=== PATIENT | female | born 1990 | race Caucasian/White ===

== ENCOUNTER 2016-06-22 15:05 | Emergency (ER) | payer SELFPAY ==
[2016-06-22] MEDS ORDERED: OXYCODONE-ACETAMINOPHEN 5-325 MG TABLET PO ONE (15:52)
[2016-06-22] MEDS ORDERED: SULFAMETHOXAZOLE/TRIMETHOPRIM 800-160 MG TABLET PO ONE (15:52)
--- NOTE | 2016-06-22 15:58 | ER Document Report ---
ED Medical Screen (RME) - General Chief Complaint: Abscess Stated Complaint: ARM PAIN Time seen by provider: 15:53 Mode of Arrival: Ambulatory Information source: Patient Notes: This is a 26-year-old female with no prior medical problems who presents to the emergency room with tenderness in her left axilla. The patient is a smoker and states she's had a productive cough with sinus congestion recently. She denies fever. She has had abscesses in the past but states that this feels different. She states that this feels hard. TRAVEL OUTSIDE OF THE [place] IN LAST 30 DAYS: No - HPI Onset: Last week Onset/Duration: Gradual Quality of pain: Dull Severity: Moderate Pain Level: 3 Associated Symptoms: Chills, Cough (productive), Sinus pain/drainage. denies: Fever Exacerbated by: Denies Relieved by: Denies Similar symptoms previously: No Recently seen / treated by doctor: No - Related Data Smoking: Cigarettes Frequency of alcohol use: None Drug Abuse: None Allergies/Adverse Reactions: ketorolac [From Toradol] Allergy (Verified 06/22/16 15:18) Past Medical History - General Information source: Patient - Social History Cigarette use (# per day): Yes - 6 cigarettes a day (down from a pack a day) Chew tobacco use (# tins/day): Yes - 6 per day Frequency of alcohol use: None Drug Abuse: None Lives with: Family Family history: Reviewed & Not Pertinent - Medical History Medical History: Negative Pulmonary Medical History: Reports: Hx Bronchitis Renal/ Medical History: Denies: Hx Peritoneal Dialysis Musculoskeltal Medical History: Denies Hx Arthritis, Denies Hx Fibromyalgia, Reports Hx Musculoskeletal Trauma Psychiatric Medical History: Denies: Hx Anxiety Traumatic Medical History: Denies: Hx Fractures Past Surgical History: Reports: Hx Appendectomy - Immunizations Hx Diphtheria, Pertussis, Tetanus Vaccination: Yes - 2009 Review of Systems - Review of Systems Constitutional: See HPI EENT: No symptoms reported Cardiovascular: No symptoms reported Respiratory: See HPI Gastrointestinal: No symptoms reported Genitourinary: No symptoms reported Female Genitourinary: No symptoms reported Musculoskeletal: See HPI Skin: See HPI Hematologic/Lymphatic: No symptoms reported Neurological/Psychological: No symptoms reported Physical Exam - Vital signs Vitals: Temp Pulse Resp BP Pulse Ox 98.3 F 71 14 126/85 H 98 06/22/16 15:21 06/22/16 15:21 06/22/16 15:21 06/22/16 15:21 06/22/16 15:21 Notes: Physical exam: GENERAL: 26-year-old female, alert and oriented 3, no acute distress HEAD: Atraumatic, normocephalic. EYES: Pupils equal round and reactive to light, extraocular movements intact, sclera anicteric, conjunctiva are normal. ENT: TMs normal, nares patent, oropharynx clear without exudates. Moist mucous membranes. NECK: Normal range of motion, supple LUNGS: Scattered wheezes, good airway excursion HEART: Regular rate and rhythm without murmurs, rubs or gallops. ABDOMEN: Soft, normoactive bowel sounds. No tenderness to palpation. No guarding, no rebound. No masses appreciated. EXTREMITIES: Normal range of motion, no pitting or edema. No clubbing or cyanosis. NEUROLOGICAL: Cranial nerves II through XII grossly intact. Normal speech, normal gait. PSYCH: Normal mood, normal affect. SKIN: Patient has a tender nodular-like lesion in the left axilla which is approximately a half a centimeter. There is no overlying erythema. There is no fluctuance. There is no drainage or warmth around the skin. It does feel more like a tender lymph node given its firmness. Course - Re-evaluation Re-evalutation: 06/22/16 15:56 I've discussed the issue with the patient. This may be a reactive lymph node to a sinus infection or bronchitis in the setting of smoking. In any event, I don't detect any fluctuance or anything that requires an incision and drainage at this time. I did tell her that if there was increasing swelling or redness or fluctuance, we would actually at that point in size of lesion and drain it. At this point, I think it's more the lymph node and we will treat with warm packs and antibiotics. - Vital Signs Vital signs: Temp Pulse Resp BP Pulse Ox 98.9 F 66 16 128/74 H 99 06/22/16 16:12 06/22/16 16:12 06/22/16 16:12 06/22/16 16:12 06/22/16 16:12 Doctor's Discharge - Discharge Clinical Impression: inflamed lymph node, URI Disposition: HOME, SELF-CARE Instructions: Oral Narcotic Medication ([facility]), Trimethoprim-Sulfa ([facility]) Additional Instructions: Recommendations: Try warm soaks to the area several times a day. Take pain medicine as needed. See the narcotic instructions below. Take the antibiotics as prescribed. Return to the emergency room if the skin becomes red or there is swelling or fluctuance over the area or any concerns that it's getting worse: It may need an incision and drainage at that time. Prescriptions: Oxycodone HCl/Acetaminophen [Percocet 5-325 mg Tablet] 1 - 2 tab PO ASDIR PRN # 25 tablet PRN Reason: Sulfamethoxazole/Trimethoprim [Bactrim Ds Tablet] 1 each PO BID #14 tablet
[2016-06-22 16:30] VITALS: BP 128/74
== END 2016-06-22 16:28 | disposition home or self-care (01) ==
LOC: ER 15:05
DX: R59.0 Localized enlarged lymph nodes (principal); J06.9 Acute upper respiratory infection, unspecified; R05 Cough; R09.89 Other specified symptoms and signs involving the circulatory and respiratory systems; R68.83 Chills (without fever); R06.2 Wheezing; F17.210 Nicotine dependence, cigarettes, uncomplicated; Z88.6 Allergy status to analgesic agent
CPT/HCPCS: 99283

== ENCOUNTER 2016-07-01 17:59 | Emergency (ER) | payer SELFPAY ==
[2016-07-01 18:05] VITALS: BP 128/88
--- NOTE | 2016-07-01 19:53 | ER Document Report ---
ED Skin Rash/Insect Bite/Abscs - General Chief Complaint: Abscess Stated Complaint: PAINFUL ARMPIT BUMP Time Seen by Provider: 07/01/16 19:48 Mode of Arrival: Ambulatory Information source: Patient Notes: Patient is a 26-year-old female who presents to the ER today for painful lumps in her left armpit 3 weeks. Patient has been seen here for them when it was just one lump, placed on Bactrim and states that that did get better. She has no history of MRSA that she knows of. She states that it started to become painful and itchy again and now she has several lumps but they 're smaller than the one she had before. She denies any fevers or chills, drainage. TRAVEL OUTSIDE OF THE [place] IN LAST 30 DAYS: No - Related Data Allergies/Adverse Reactions: ketorolac [From Toradol] Allergy (Verified 07/01/16 18:04) Past Medical History - General Information source: Patient - Social History Smoking Status: Unknown if Ever Smoked Family History: Arthritis, CAD, CVA, DM, Hyperlipidemia, Hypertension, Malignancy Patient has suicidal ideation: No Patient has homicidal ideation: No Pulmonary Medical History: Reports: Hx Bronchitis Renal/ Medical History: Denies: Hx Peritoneal Dialysis Musculoskeltal Medical History: Denies Hx Arthritis, Denies Hx Fibromyalgia, Reports Hx Musculoskeletal Trauma Psychiatric Medical History: Denies: Hx Anxiety Traumatic Medical History: Denies: Hx Fractures Past Surgical History: Reports: Hx Appendectomy - Immunizations Hx Diphtheria, Pertussis, Tetanus Vaccination: Yes - 2009 Review of Systems - Review of Systems Constitutional: No symptoms reported EENT: No symptoms reported Cardiovascular: No symptoms reported Respiratory: No symptoms reported Gastrointestinal: No symptoms reported Genitourinary: No symptoms reported Female Genitourinary: No symptoms reported Musculoskeletal: No symptoms reported Skin: See HPI Hematologic/Lymphatic: No symptoms reported Neurological/Psychological: No symptoms reported Physical Exam - Vital signs Vitals: Temp Pulse Resp BP Pulse Ox 99.2 F 65 14 128/88 H 99 07/01/16 18:04 07/01/16 18:04 07/01/16 18:04 07/01/16 18:04 07/01/16 18:04 - Notes Notes: PHYSICAL EXAMINATION: GENERAL: Well-appearing and in no acute distress. HEAD: Atraumatic, normocephalic. EYES: Pupils equal round and reactive to light, extraocular movements intact, sclera anicteric, conjunctiva are normal. NECK: Normal range of motion, supple without lymphadenopathy LUNGS: CTAB and equal. No wheezes rales or rhonchi. HEART: Regular rate and rhythm without murmurs EXTREMITIES: Normal range of motion, no pitting edema. No cyanosis. NEUROLOGICAL: Cranial nerves grossly intact. Normal sensory/motor exams. PSYCH: Normal mood, normal affect. SKIN: Warm, Dry, normal turgor, 3 small indurated, erythematous areas felt in the left axilla, less than 1 cm in size each, felt deep and axilla , excoriation present Course - Vital Signs Vital signs: Temp Pulse Resp BP Pulse Ox 99.2 F 65 14 128/88 H 99 07/01/16 18:04 07/01/16 18:04 07/01/16 18:04 07/01/16 18:04 07/01/16 18:04 Discharge - Discharge Clinical Impression: Abscess of axilla, left Condition: Stable Disposition: HOME, SELF-CARE Instructions: Oral Narcotic Medication ([facility]) Additional Instructions: Return immediately for any new or worsening symptoms. Follow up with surgeon/primary care provider, call tomorrow to make followup appointment. Prescriptions: Doxycycline Hyclate 100 mg PO BID #20 capsule Referrals: GENOVEVA ESPINO MD [ACTIVE STAFF] - Follow up as needed
[2016-07-01] MEDS ORDERED: DOXYCYCLINE HYCLATE 100 MG TABLET PO ONE (20:03)
[2016-07-01] MEDS ORDERED: HYDROCODONE/ACETAMINOPHEN 5-325 MG 6 TAB/DSPK PO PRN (20:03)
[2016-07-01] MEDS ORDERED: HYDROCODONE/ACETAMINOPHEN 5-325 MG TABLET PO ONE (20:03)
[2016-07-01] MEDS ORDERED: OXYCODONE-ACETAMINOPHEN 5-325 MG TABLET PO ONE (20:12)
== END 2016-07-01 20:22 | disposition home or self-care (01) ==
LOC: ER 17:59
DX: L02.414 Cutaneous abscess of left upper limb (principal)
CPT/HCPCS: 99282

== ENCOUNTER 2016-09-15 20:14 | Observation (INO) | payer SELFPAY ==
[2016-09-15] MEDS ORDERED: NORMAL SALINE 1000 ML 1,000 ML IV ONE (20:32)
--- NOTE | 2016-09-15 20:33 | ER Document Report ---
ED Substance Abuse / Acc. OD - General Stated Complaint: UNRESPONSIVE Time Seen by Provider: 09/15/16 20:27 Notes: Patient is a 26-year-old female that comes emergency department by being dropped off by her mother after she was found not responding at home. Patient awakened after arrival to the emergency department, she tells me that she does remember injecting heroin into her right antecubital space. Patient states that she is supposed to be entering detox in 2 days and has the appointment already. Patient states that she was not trying to kill herself or overdose. Patient states that she aches all over and feels cold but denies any other symptoms including difficulty breathing. She missed her last menstrual cycle. She denies any daily medications. She denies any medical history other than history of substance abuse. TRAVEL OUTSIDE OF THE [place] IN LAST 30 DAYS: No - Related Data Allergies/Adverse Reactions: ketorolac [From Toradol] Allergy (Verified 07/01/16 18:04) Past Medical History - General Information source: Patient - Social History Smoking Status: Former Smoker Frequency of alcohol use: Occasional Drug Abuse: Cocaine, Heroin, Marijuana Lives with: Family Family History: Arthritis, CAD, CVA, DM, Hyperlipidemia, Hypertension, Malignancy Pulmonary Medical History: Reports: Hx Bronchitis Renal/ Medical History: Denies: Hx Peritoneal Dialysis Musculoskeltal Medical History: Denies Hx Arthritis, Denies Hx Fibromyalgia, Reports Hx Musculoskeletal Trauma Psychiatric Medical History: Denies: Hx Anxiety Traumatic Medical History: Denies: Hx Fractures Past Surgical History: Reports: Hx Appendectomy - Immunizations Hx Diphtheria, Pertussis, Tetanus Vaccination: Yes - 2009 Review of Systems - Review of Systems Constitutional: No symptoms reported EENT: No symptoms reported Cardiovascular: See HPI Respiratory: No symptoms reported Gastrointestinal: No symptoms reported Genitourinary: No symptoms reported Female Genitourinary: No symptoms reported Musculoskeletal: No symptoms reported Skin: No symptoms reported Hematologic/Lymphatic: No symptoms reported Neurological/Psychological: See HPI Physical Exam - Vital signs Vitals: Resp 10 L 09/15/16 20:25 Interpretation: Normal - General General appearance: Alert, Lethargic - sedated, but arousable and responsive with sternal rub In distress: None - HEENT Head: Normocephalic, Atraumatic Eyes: Normal Pupils: PERRL - Respiratory Respiratory status: No respiratory distress. No: Depressed respirations, Tachypnea Chest status: Nontender Breath sounds: Normal. No: Decreased air movement Chest palpation: Normal - Cardiovascular Rhythm: Regular. No: Tachycardia Heart sounds: Normal auscultation, S1 appreciated, S2 appreciated Murmur: No - Abdominal Inspection: Normal Distension: No distension Bowel sounds: Normal Tenderness: Nontender Organomegaly: No organomegaly - Back Back: Normal, Nontender - Extremities General upper extremity: Normal inspection, Nontender, Normal color, Normal ROM , Normal temperature General lower extremity: Normal inspection, Nontender, Normal color, Normal ROM , Normal temperature, Normal weight bearing. No: Willis's sign - Neurological [place] Coma Scale Eye Opening: To Pain [place] Coma Scale Verbal: Oriented [place] Coma Scale Motor: Obeys Commands [place] Coma Scale Total: 13 Speech: Normal Cranial nerves: Normal Cerebellar coordination: Normal Motor strength normal: LUE, RUE, LLE, RLE Additional motor exam normals: Equal birth attendant Sensory: Normal - Skin Skin Temperature: Warm Skin Moisture: Dry Skin Color: Normal Course - Re-evaluation Re-evalutation: On initial examination patient is maintaining her airway, she is drowsy but responds to sternal rub. With sternal rub she becomes responsive and answers questions. She admits that she injected heroin, believe she took cocaine and other substances. She states that she was having some fun before going into detox in 2 days. Because of no SI or HI patient will not be placed on IVC papers at this time. Lab workup does not show any concerning abnormalities, shows polysubstance abuse. We will continue to monitor. Mother came to bedside, discussed situation with mother, she states that she needs to go home but she is leaving her phone number for contact with the nurse. Discussed decision of not giving Narcan to avoid patient becoming very agitated and leaving with Narcan wearing off before heroin effects. Patient was also discussed with Dr. Paniagua. 09/16/16 00:07 Patient is now responding to verbal stimuli, she is more arousable, she continues to protect her airway, vital signs show borderline tachycardia but otherwise unremarkable. We will continue to monitor until she is awake enough to go home 09/16/16 01:46 Patient is more alert, more oriented, still drowsy. She is more tachycardic. Giving additional fluids. Pressure and oxygen are normal, still protecting her airway without any difficulty. Patient has been given 3 L boluses. She is much more alert but she remains tachycardic. When she stands her heart rate elevates to 130s+. She denies any symptoms other than generalized aches. She denies shortness of breath. She is still stating she wants to go home. After additoinal time and monitoring, tachycardia unchanged, still worsens with standing. Discussed with patient. Discussed with Dr. Paniagua. Patient states she is agreeable with admission. Discussed with Dr. Walker, patient will be admitted to the hospital. - Vital Signs Vital signs: Temp Pulse Resp BP Pulse Ox 88 16 135/90 H 99 09/15/16 20:38 09/16/16 05:30 09/16/16 05:20 09/16/16 05:30 - Laboratory Result Diagrams: 09/15/16 20:29 09/15/16 20:29 Laboratory results interpreted by me: 09/15/16 20:29 Carbon Dioxide 34 H BUN 5 L Salicylates < 1.0 L Acetaminophen < 10 L Discharge - Discharge Clinical Impression: Substance abuse, Tachycardia Admitting Provider: Hospitalist Unit Admitted: ICU
[2016-09-15 20:41] LABS: ABSOLUTE BASOPHILS # (AUTO) 0.1 10^3/uL (0.0-0.2); ABSOLUTE EOSINOPHILS # (AUTO) 0.2 10^3/uL (0.0-0.6); ABSOLUTE LYMPHOCYTES (AUTO) 1.1 10^3/uL (0.5-4.7); ABSOLUTE MONOCYTES (AUTO) 0.6 10^3/uL (0.1-1.4); ABSOLUTE NEUT (AUTO) 4.8 10^3/uL (1.7-8.2); BASOPHILS % (AUTO) 0.8 % (0-2); EOSINOPHILS % (AUTO) 3.3 % (0-6); HEMATOCRIT 42.5 % (36.0-47.0); HEMOGLOBIN 14.7 g/dL (12.0-15.5); HGB HCT DIFFERENCE 1.6; LYMPHOCYTES % (AUTO) 16.2 % (13-45); MEAN CORPUSCULAR HEMOGLOBIN 32.5 pg (27.0-33.4); MEAN CORPUSCULAR HGB CONC 34.6 g/dL (32.0-36.0); MEAN CORPUSCULAR VOLUME 94 fl (80-97); MONOCYTES % (AUTO) 8.3 % (3-13); RED BLOOD COUNT 4.53 10^6/uL (3.72-5.28); RED CELL DISTRIBUTION WIDTH 13.1 % (11.5-14.0); SEGMENTED NEUTROPHILS % (AUTO) 71.4 % (42-78); WHITE BLOOD COUNT 6.8 10^3/uL (4.0-10.5)
[2016-09-15 21:00] LABS: ALANINE AMINOTRANSFERASE 25 U/L (9-52); ALBUMIN 4.2 g/dL (3.5-5.0); ALKALINE PHOSPHATASE 77 U/L (38-126); ANION GAP 8 (5-19); ASPARTATE AMINO TRANSFERASE 20 U/L (14-36); BILIRUBIN,DIRECT 0.3 mg/dL (0.0-0.4); BILIRUBIN,TOTAL 0.5 mg/dL (0.2-1.3); BLOOD UREA NITROGEN 5 mg/dL (7-20); CALCIUM 9.5 mg/dL (8.4-10.2); CARBON DIOXIDE 34 mmol/L (22-30); CHLORIDE 98 mmol/L (98-107); CREATININE RESULT 0.75 mg/dL (0.52-1.25); GLUCOSE 84 mg/dL (75-110); POTASSIUM 4.4 mmol/L (3.6-5.0); SODIUM 139.9 mmol/L (137-145); TOTAL PROTEIN 7.2 g/dL (6.3-8.2)
[2016-09-15 21:05] LABS: ALCOHOL < 10 mg/dL (NONE DETECTED)
--- NOTE | 2016-09-15 21:05 | RADIOLOGY REPORT (SQ) ---
EXAM DESCRIPTION: CHEST SINGLE VIEW COMPLETED DATE/TIME: 09/15/2016 8:56 pm REASON FOR STUDY: passed out; ? aspiration COMPARISON: December 2015 EXAM PARAMETERS: NUMBER OF VIEWS: One view. TECHNIQUE: Single frontal radiographic view of the chest acquired. RADIATION DOSE: NA LIMITATIONS: None. FINDINGS: LUNGS AND PLEURA: No opacities, masses or pneumothorax. No pleural effusion. MEDIASTINUM AND HILAR STRUCTURES: No masses. Contour normal. HEART AND VASCULAR STRUCTURES: Heart normal in size. Normal vasculature. BONES: No acute findings. HARDWARE: None in the chest. OTHER: No other significant finding. IMPRESSION: NO ACUTE RADIOGRAPHIC FINDING IN THE CHEST. TECHNICAL DOCUMENTATION: JOB ID: [id number]
[2016-09-15 21:43] LABS: APPEARANCE,URINE CLEAR; BILIRUBIN,URINE NEGATIVE (NEGATIVE); GLUCOSE, URINE NEGATIVE (NEGATIVE); KETONES,URINE NEGATIVE (NEGATIVE); LEUKOCYTE ESTERASE,URINE NEGATIVE (NEGATIVE); NITRITE,URINE NEGATIVE (NEGATIVE); PROTEIN,URINE NEGATIVE (NEGATIVE); URINE SPECIFIC GRAVITY 1.008; UROBILINOGEN,URINE NEGATIVE mg/dL (<2.0)
[2016-09-15 21:57] LABS: URINE BARBITURATES SCREEN NEGATIVE; URINE METHADONE SCREEN NEGATIVE; URINE OPIATES LOW UNCONFIRMED POSITIVE; URINE PHENCYCLIDINE SCREEN NEGATIVE
[2016-09-16] MEDS ORDERED: NORMAL SALINE 1000 ML 1,000 ML IV ONE ×2 (01:46→02:48)
[2016-09-16] MEDS ORDERED: ACETAMINOPHEN 325 MG TABLET PO ONE (04:40)
[2016-09-16 05:53] LABS: ABSOLUTE EOSINOPHILS # (AUTO) 0.1 10^3/uL (0.0-0.6); ABSOLUTE LYMPHOCYTES (AUTO) 0.7 10^3/uL (0.5-4.7); ABSOLUTE MONOCYTES (AUTO) 0.6 10^3/uL (0.1-1.4); ABSOLUTE NEUT (AUTO) 6.3 10^3/uL (1.7-8.2); BASOPHILS % (AUTO) 0.4 % (0-2); EOSINOPHILS % (AUTO) 0.9 % (0-6); HEMATOCRIT 38.5 % (36.0-47.0); HEMOGLOBIN 13.1 g/dL (12.0-15.5); HGB HCT DIFFERENCE 0.8; LYMPHOCYTES % (AUTO) 9.3 % (13-45); MEAN CORPUSCULAR HEMOGLOBIN 31.7 pg (27.0-33.4); MEAN CORPUSCULAR HGB CONC 34.1 g/dL (32.0-36.0); MEAN CORPUSCULAR VOLUME 93 fl (80-97); MONOCYTES % (AUTO) 7.2 % (3-13); RED BLOOD COUNT 4.15 10^6/uL (3.72-5.28); RED CELL DISTRIBUTION WIDTH 12.7 % (11.5-14.0); SEGMENTED NEUTROPHILS % (AUTO) 82.2 % (42-78); WHITE BLOOD COUNT 7.6 10^3/uL (4.0-10.5)
[2016-09-16 06:05] LABS: ANION GAP 6 (5-19); BLOOD UREA NITROGEN 4 mg/dL (7-20); CALCIUM 8.4 mg/dL (8.4-10.2); CARBON DIOXIDE 27 mmol/L (22-30); CHLORIDE 103 mmol/L (98-107); CREATININE RESULT 0.56 mg/dL (0.52-1.25); GLUCOSE 111 mg/dL (75-110); MAGNESIUM 1.6 mg/dL (1.6-2.3); POTASSIUM 4.3 mmol/L (3.6-5.0); SODIUM 136.4 mmol/L (137-145)
[2016-09-16] MEDS ORDERED: MAGNESIUM HYDROXIDE SUSP 30 ML UDCUP PO PRN ×2 (06:36→14:25)
[2016-09-16] MEDS ORDERED: MAG HYDROX/AL HYDROX/SIMETH SUSP 30 ML UDCUP PO PRN ×2 (06:36→14:24)
[2016-09-16] MEDS ORDERED: ACETAMINOPHEN 325 MG TABLET PO PRN (06:36)
[2016-09-16] MEDS ORDERED: NORMAL SALINE 1000 ML 1,000 ML IV PRN (06:39)
[2016-09-16] MEDS ORDERED: PROMETHAZINE HCL 25 MG TABLET PO PRN ×2 (06:40→14:27)
--- NOTE | 2016-09-16 06:57 | PDOC H&P ---
History of Present Illness Admission Date/PCP: 09/16/16 06:19 Primary care provider none Patient complains of: Confusion, drug abuse History of Present Illness: SYEDA SHANNON is a 26 year old female reportedly recently in snf for 45 days, and scheduled to enter detox in 2 days for recent alcohol bingeing, brought to the emergency room by her mother, after she was found basically unresponsive at home. Patient has been discussed with emergency room nurse practitioner who evaluated the patient. Patient is able to provide little history in terms of acute events , but is able to provide information related to chronic events, review of systems, personal habits, family history, etc. No friends or family are present. Old inpatient records are reviewed. She admits to injecting heroin yesterday, but was uncertain as to what if anything else she took. She was initially quite somnolent, although maintaining airway well. Due to concern for possible adverse reaction, has not been given Narcan. Initial plans by the emergency room staff were to discharge the patient home, but whenever she arises to a standing position, she becomes tachycardic into the 130 range. Temperature elevation to 100.3 earlier during her emergency room stay. Patient is now awake and reasonably alert although somewhat fatigued. ER staff states patient is much improved compared to first presentation to the emergency room. Currently resting quietly, complaining mainly of being fatigued, along with mild headache. Denies nausea vomiting, diarrhea or dysuria. No chest or abdominal pain. Dictation via voice recognition software. Laboratory results are listed in [facility]-DISPO and are reviewed. X-ray summary results are listed below, with full report(s) reviewed. . EKG reviewed. No prior EKG available for comparison. Social history/personal habits: . No children. Unemployed. Just over one half pack of cigarettes per day. Admits to drinking whiskey "when I have to." Illicit drug use as noted above. Allergies/adverse reactions are listed in I-[facility]PO and are reviewed. Home medications none REVIEW OF SYSTEMS: Constitutional: See history and present illness. Eyes: No vision complaints. ENT: No swallowing problems or complaints. Denies hearing loss. Pulmonary: No current complaints. Cardiovascular: See history and present illness. Gastrointestinal: No current complaints, including nausea or vomiting. Skin: No current complaints, including rashes. Hematologic: Denies easy bruising. Neurologic: No current complaints, including numbness or tingling. Musculoskeletal: No current or chronic joint complaints, such as arthritis. Psychiatric: Denies anxiety or depression. Endocrine: No current complaints, including polyuria. Genitourinary: No current complaints, including dysuria. PHYSICAL EXAMINATION: 54.4 kg. Height is not listed on the chart. Blood pressure 129/89. Pulse 108 and regular.Respirations are 15 and unlabored. 100% saturation on room air. Well-nourished well-developed female appearing approximately her stated age. A bit fatigued, but otherwise awake alert and cooperative. Mildly anxious, without agitation. Emergency room nurses Nelsy and Pallavi are present. Skin is warm and dry. No grossly obvious evidence of rash in areas of skin examined. No subcutaneous nodules palpated. ENT: Hearing grossly normal to normal conversation. Tongue midline on protrusion pink and slightly tacky. Eyes: No scleral icterus. Pupils equal and reactive to light at 4 mm. [place] conjunctivae. No raccoon eyes. Neck is supple and nontender to gentle active range of motion and palpation. Midline trachea. No palpable thyroid nodule mass enlargement or tenderness. Lymphatic: No palpable cervical or clavicular nodes. Neck and lymphatic exams limited by patient body habitus. Psychiatric: Fair to reasonable insight into chronic medical issues. See history and present illness. Lungs: Auscultation reveals clear and equal breath sounds bilaterally. No use of accessory respiratory muscles. Cardiovascular: Heart regular rate and rhythm, without gallop murmur or rub. No carotid or abdominal aortic bruits. No ankle or pedal edema. Faintly palpable dorsalis pedis pulses. Abdomen:soft slightly distended nontender with positive bowel sounds. Unable to adequately evaluate abdomen for masses or organomegaly due to distention. Extremities: Hands and feet are warm and dry. No calf tenderness to compression. No grossly obvious visual evidence of calf swelling. Gentle manipulation of upper and lower extremities fails to reveal any obvious evidence of injury or instability to involved major joints. Neurologic: Light touch intact at face, upper and lower extremities. Motor function of major muscle groups upper and lower extremities 5 over 5 and symmetric. Patellar reflexes absent. Absent Babinski. No nystagmus. No rigidity. No ankle clonus. Ambulated from emergency room bed to bedside toilet. Past Medical History Cardiac Medical History: Denies: Atrial Fibrillation, Congestive Heart Failure, Coronary Artery Disease, DVT, Myocardial Infarction, Hyperlipidema, Hypertension, Pulmonary Embolism Pulmonary Medical History: Reports: Bronchitis Denies: Asthma, Chronic Obstructive Pulmonary Disease (COPD), Sleep Apnea EENT Medical History: Denies: Eyes, Ears, Throat Neurological Medical History: Denies: Hemorrhagic CVA, Ischemic CVA, Seizures Endocrine Medical History: Denies: Diabetes Mellitus Type 1, Diabetes Mellitus Type 2, Hyperthyroidism, Hypothyroidism Renal/ Medical History: Reports: None GI Medical History: Denies: Cirrhosis, Gastroesophageal Reflux Disease, Hiatal Hernia, Peptic Ulcer Disease Musculoskeltal Medical History: Denies: Arthritis, Fibromyalgia Skin Medical History: Reports: None Psychiatric Medical History: Reports: Alcohol Dependency - Recent bingeing., Substance Abuse, Tobacco Dependency Denies: Depression, General Anxiety Disorder Hematology: Reports: Other - Easy bruising Infectious Medical History: Denies: Hepatitis B, Hepatitis C Past Surgical History Past Surgical History: Reports: Appendectomy Social History Information Source: Patient, Emergency Med Personnel, [facility] Records Lives with: Family Smoking Status: Current Every Day Smoker Frequency of Alcohol Use: Occasional - Recent bingeing Drugs: Cocaine, Heroin, Marijuana - Advance Directive Resuscitation Status: Full Code Surrogate healthcare decision maker:: Mother Family History Family History: Arthritis, CAD, CVA, DM, Hyperlipidemia, Hypertension, Malignancy Parental Family History Reviewed: Yes - Parents are healthy Children Family History Reviewed: NA Sibling(s) Family History Reviewed.: Yes - Healthy Medication/Allergy Home Medications: Cyclobenzaprine HCl [Flexeril 10 Mg Tablet] 10 mg PO TIDP PRN #20 tablet Diphenhydramine HCl [Benadryl Allergy] 12.5 mg PO 10/08/13 Oxycodone HCl/Acetaminophen [Percocet 5-325 mg Tablet] 1 - 2 tab PO ASDIR PRN # 15 tablet 10/08/13 Cyclobenzaprine HCl [Flexeril 10 mg Tablet] 10 mg PO TIDP PRN #30 tab 12/26/13 Hydrocodone/Acetaminophen [[place] 5-325 Tablet] 1 each PO Q6 PRN #21 tablet 12/26 Ibuprofen 800 mg PO TID #90 tablet 12/26/13 Methocarbamol [Robaxin 750 mg Tablet] 750 mg PO QID #40 tablet 02/03/14 Naproxen [Naprosyn 250 Nmg Tablet] 500 mg PO BIDP PRN #30 tablet 02/03/14 Fluticasone Propionate [Flonase Nasal [place] 50 Mcg/[place] 16 gm] 2 sprays NASL Q12 #1 inhaler 04/08/14 Hydrocodone Bit/Homatropine [Hycodan Syrup 5-1.5 mg/5 ml Ud Cup] 5 ml PO Q4HP PRN #120 ml 04/08/14 Azithromycin [Zithromax 250 mg Tablet] 250 mg PO ASDIR PRN #6 tablet 09/05/14 Guaifenesin/Codeine Phosphate [Guaifenesin Ac Cough Syrup] 5 ml PO Q6 PRN #50 ml 09/05/14 Methylprednisolone [Medrol Dosepack (4 mg/Tab) 21 Tab/Dosepak] 4 mg PO ASDIR PRN #21 tab.ds.pk 09/05/14 Oxycodone HCl [Oxycontin Sr 10 mg Tablet] 10 mg PO Q12 #4 tab.sr.12h 09/16/16 Allergies/Adverse Reactions: No Known Allergies Allergy (Unverified 09/16/16 11:46) Physical Exam Vital Signs: Temp Pulse Resp BP Pulse Ox 100.3 F 88 18 129/89 H 100 09/16/16 06:01 09/15/16 20:38 09/16/16 06:15 09/16/16 06:01 09/16/16 06:15 Results Impressions: Chest X-Ray 09/15/16 20:31 IMPRESSION: NO ACUTE RADIOGRAPHIC FINDING IN THE CHEST. Assessment & Plan - Diagnosis (1) Acute encephalopathy Is this a current diagnosis for this admission?: YesPlan: Likely secondary to her polysubstance abuse. Clearing with time and treatment. I have strongly encouraged patient not to get out of bed without notifying staff , to avoid a fall with injury. Knee high SCDs for DVT prophylaxis; with patient likely being discharged later today, combined with her young age, we will forego Lovenox or heparin at this point in time. Impression and plans were discussed with patient who concurs. Time spent in evaluation and management of patient: 60 minutes. (2) Cocaine abuse Is this a current diagnosis for this admission?: Yes (3) DVT prophylaxis Is this a current diagnosis for this admission?: Yes (4) Heroin abuse Is this a current diagnosis for this admission?: Yes (5) Marijuana use Is this a current diagnosis for this admission?: Yes (6) Tachycardia Is this a current diagnosis for this admission?: YesPlan: Should gradually resolve with time and treatment. Since not completely sure what patient took yesterday, will place in ICU for the time being.
[2016-09-16] MEDS ORDERED: THIAMINE HCL 100 MG TABLET PO SCH (08:00)
[2016-09-16] MEDS: DOCUSATE SODIUM 100 MG CAPSULE PO SCH ×2 (09:28→09:30)
[2016-09-16 10:54] LABS: FREE T3 4.49 pg/mL (2.77-5.27)
--- NOTE | 2016-09-16 14:06 | PDOC DISCHARGE SUMMARY ---
General - Admit/Disc Date/PCP Admission Date/Primary Care Provider: 09/16/16 06:36 Discharge Date: 09/16/16 - Discharge Diagnosis (1) Acute encephalopathy Is this a current diagnosis for this admission?: YesSummary: resolved. 2/2 substance abuse (2) Substance abuse Is this a current diagnosis for this admission?: YesSummary: multiple drugs in her system that she readily acknowledges taking anything she could get her hands on before heading off to rehab. reports being clean during and immediately after rehab, went from there to 45d in [facility] getting out this past Tuesday and she's been "partying" ever since knowing that her mother was going to make her go back to rehab. she reports there is a bed available for her either today or tomorrow and she is "fearful" of going into withdrawals in the meantime, asking for Rx of " a few pills" to "get her through" until they can treat her; this is supported by her mother it seems. I will give 4 pills of long acting oxycodone to bridge her over but no more. she is stable for d/c home at this time. (3) Tachycardia Is this a current diagnosis for this admission?: YesSummary: most likely effects of her drug binge, she took an unusual, seemingly random assortment of uppers and downers so chances of adverse reaction increased. furthermore she readily admits to not "taking care of herself" since she got out of senior care so maybe a component of volume depletion as well. nevertheless, she is a young otherwise healthy female and tolerated this mild tachycardia without further incident or complication. review of the ecg and telemetry shows only sinus tach, there was one strip with short burst of SVT less than 6 secs. she has no recollection of palpitations or other symptoms. currently her HR is sustained <100 and she is stable for d/c home. - Additional Information Resuscitation Status: Full Code Discharge Diet: As Tolerated Discharge Activity: Activity As Tolerated Home Medications: Cyclobenzaprine HCl [Flexeril 10 Mg Tablet] 10 mg PO TIDP PRN #20 tablet Diphenhydramine HCl [Benadryl Allergy] 12.5 mg PO 10/08/13 Oxycodone HCl/Acetaminophen [Percocet 5-325 mg Tablet] 1 - 2 tab PO ASDIR PRN # 15 tablet 10/08/13 Cyclobenzaprine HCl [Flexeril 10 mg Tablet] 10 mg PO TIDP PRN #30 tab 12/26/13 Hydrocodone/Acetaminophen [[place] 5-325 Tablet] 1 each PO Q6 PRN #21 tablet 12/26 RX: Ibuprofen 800 mg PO TID #90 tablet 12/26/13 Methocarbamol [Robaxin 750 mg Tablet] 750 mg PO QID #40 tablet 02/03/14 Naproxen [Naprosyn 250 Nmg Tablet] 500 mg PO BIDP PRN #30 tablet 02/03/14 Fluticasone Propionate [Flonase Nasal [place] 50 Mcg/[place] 16 gm] 2 sprays NASL Q12 #1 inhaler 04/08/14 Hydrocodone Bit/Homatropine [Hycodan Syrup 5-1.5 mg/5 ml Ud Cup] 5 ml PO Q4HP PRN #120 ml 04/08/14 Azithromycin [Zithromax 250 mg Tablet] 250 mg PO ASDIR PRN #6 tablet 09/05/14 Guaifenesin/Codeine Phosphate [Guaifenesin Ac Cough Syrup] 5 ml PO Q6 PRN #50 ml 09/05/14 Methylprednisolone [Medrol Dosepack (4 mg/Tab) 21 Tab/Dosepak] 4 mg PO ASDIR PRN #21 tab.ds.pk 09/05/14 Oxycodone HCl [Oxycontin Sr 10 mg Tablet] 10 mg PO Q12 #4 tab.sr.12h 09/16/16 History of Present Illness Patient complains of: confusion History of Present Illness: SYEDA SHANNON is a 26 year old female reportedly recently in senior care for 45 days, and scheduled to enter detox in 2 days for recent alcohol bingeing, brought to the emergency room by her mother, after she was found basically unresponsive at home. Hospital Course Hospital Course: Patient has been discussed with emergency room nurse practitioner who evaluated the patient. Patient is able to provide little history in terms of acute events , but is able to provide information related to chronic events, review of systems, personal habits, family history, etc. No friends or family are present. Old inpatient records are reviewed. She admits to injecting heroin yesterday, but was on certain as to what if anything else she took. She was initially quite somnolent, although maintaining airway well. Due to concern for possible adverse reaction, has not been given Narcan. Initial plans by the emergency room staff were to discharge the patient home, but whenever she arises to a standing position, she becomes tachycardic into the 130 range. Temperature elevation to 100.3 earlier during her emergency room stay. Patient is now awake and reasonably alert although somewhat fatigued. ER staff states patient is much improved compared to first presentation to the emergency room. Currently resting quietly, complaining mainly of being fatigued, along with mild headache. Denies nausea vomiting, diarrhea or dysuria. No chest or abdominal pain. she is anxious to "get out of here" and is stable to do so at this time, hemodynamically stable. she reports that she will be signing herself into rehab this afternoon or tomorrow under the watchful eye of her mother. Physical Exam Vital Signs: Temp Pulse Resp BP Pulse Ox 98.0 F 87 17 119/76 100 09/16/16 11:38 09/16/16 11:38 09/16/16 13:30 09/16/16 12:31 09/16/16 13:30 Intake & Output 09/15/16 09/16/16 09/17/16 06:59 06:59 06:59 Weight 51.3 kg General appearance: PRESENT: no acute distress, thin, well-developed, well- nourished Head exam: PRESENT: atraumatic, normocephalic Eye exam: PRESENT: EOMI. ABSENT: conjunctival injection, scleral icterus Mouth exam: PRESENT: moist, neck supple, tongue midline, other - tongue and post oropharynx are hyperemic but no exudates or lesions noted Neck exam: PRESENT: full ROM. ABSENT: lymphadenopathy, tenderness Respiratory exam: PRESENT: clear to auscultation veronika. ABSENT: accessory muscle use Cardiovascular exam: PRESENT: RRR. ABSENT: systolic murmur, tachycardia GI/Abdominal exam: PRESENT: normal bowel sounds, soft. ABSENT: tenderness Musculoskeletal exam: PRESENT: ambulatory, full ROM Neurological exam: PRESENT: alert, awake, oriented to person, oriented to place , oriented to time, oriented to situation Psychiatric exam: PRESENT: appropriate affect, normal mood Focused psych exam: ABSENT: pressured speech, restlessness Skin exam: PRESENT: dry, warm Results Impressions: Chest X-Ray 09/15/16 20:31 IMPRESSION: NO ACUTE RADIOGRAPHIC FINDING IN THE CHEST. Qualifiers PATEINT BEING DISCHARGED WITH ANY OF THE FOLLOWING DIAGNOSIS?: No VTE patient discharged on overlapping Therapy?: No Reason(s) for not prescribing Overlap Therapy:: Not indicated Plan Discharge Plan: stable for d/c home under the care of her mother; strongly encouraged to participate in outpt rehab as arranged by family. Rx of oxycontin 10mg x4 tabs given as bridge to rehab center in the hopes of preventing relapse and/or withdrawal. Time Spent: Greater than 30 Minutes
[2016-09-16 14:41] VITALS: BP 127/82
--- NOTE | 2016-09-16 17:11 | EKG REPORT ---
SEVERITY:- BORDERLINE ECG - SINUS RHYTHM PROBABLE LEFT ATRIAL ABNORMALITY : Confirmed by: Maren Schulz MD 16-Sep-2016 17:09:58
== END 2016-09-16 15:15 | disposition home or self-care (01) ==
LOC: ER 20:14 → UNDOADMIN 09-16 06:19 → EH 09-16 06:19 → INTOOBSV 09-16 06:36 → ICU 09-16 11:32
PROVIDERS: ADMIT Family Medicine; ATTEND Family Medicine
DX: T40.5X2A Poisoning by cocaine, intentional self-harm, initial encounter (principal); T40.1X2A Poisoning by heroin, intentional self-harm, initial encounter; T40.7X2A Poisoning by cannabis (derivatives), intentional self-harm, initial encounter; G92 Toxic encephalopathy; F14.10 Cocaine abuse, uncomplicated; F11.10 Opioid abuse, uncomplicated; F12.10 Cannabis abuse, uncomplicated; R00.0 Tachycardia, unspecified; R51 Headache; F17.210 Nicotine dependence, cigarettes, uncomplicated; Z79.899 Other long term (current) drug therapy; Z82.49 Family history of ischemic heart disease and other diseases of the circulatory system; Z82.3 Family history of stroke; Z90.49 Acquired absence of other specified parts of digestive tract
CPT/HCPCS: 93005; 99285; 36415 ×2; 84439; 80307 ×4; 83735; 84443; 84703; 85025 ×2; 80048; 80053; 81001; 84481; 71010; 93010; G0378 ×2

== ENCOUNTER 2017-06-18 22:06 | Emergency (ER) | payer SELFPAY ==
[2017-06-18 22:25] VITALS: BP 120/65
== END 2017-06-19 00:25 | disposition left against medical advice (07) ==
LOC: ER 22:06
DX: Z53.21 Procedure and treatment not carried out due to patient leaving prior to being seen by health care provider (principal)

== ENCOUNTER → 2017-10-18 | Outpatient (CLI) | payer MEDICAID | LOC: OD 15:21 | PROVIDERS: ATTEND Midwife | DX: Z34.83 Encounter for supervision of other normal pregnancy, third trimester (principal); Z53.8 Procedure and treatment not carried out for other reasons ==

== ENCOUNTER 2017-11-01 12:18 | Outpatient (CLI) | payer MEDICAID ==
[2017-11-01 13:24] LABS: APPEARANCE,URINE SLIGHTLY-CLOUDY; BILIRUBIN,URINE NEGATIVE (NEGATIVE); COLOR,URINE YELLOW; GLUCOSE, URINE NEGATIVE (NEGATIVE); KETONES,URINE NEGATIVE (NEGATIVE); LEUKOCYTE ESTERASE,URINE NEGATIVE (NEGATIVE); NITRITE,URINE NEGATIVE (NEGATIVE); PROTEIN,URINE NEGATIVE (NEGATIVE); URINE SPECIFIC GRAVITY 1.009; UROBILINOGEN,URINE NEGATIVE mg/dL (<2.0)
[2017-11-01 13:47] LABS: ABSOLUTE BASOPHILS # (AUTO) 0.1 10^3/uL (0.0-0.2); ABSOLUTE EOSINOPHILS # (AUTO) 0.2 10^3/uL (0.0-0.6); ABSOLUTE LYMPHOCYTES (AUTO) 1.4 10^3/uL (0.5-4.7); ABSOLUTE MONOCYTES (AUTO) 0.6 10^3/uL (0.1-1.4); ABSOLUTE NEUT (AUTO) 9.2 10^3/uL (1.7-8.2); BASOPHILS % (AUTO) 0.5 % (0-2); EOSINOPHILS % (AUTO) 1.3 % (0-6); HEMATOCRIT 42.7 % (36.0-47.0); HEMOGLOBIN 14.3 g/dL (12.0-15.5); LYMPHOCYTES % (AUTO) 12.2 % (13-45); MEAN CORPUSCULAR HEMOGLOBIN 30.4 pg (27.0-33.4); MEAN CORPUSCULAR HGB CONC 33.5 g/dL (32.0-36.0); MEAN CORPUSCULAR VOLUME 91 fl (80-97); MONOCYTES % (AUTO) 5.1 % (3-13); PLATELET COUNT 179 10^3/uL (150-450); RED BLOOD COUNT 4.72 10^6/uL (3.72-5.28); RED CELL DISTRIBUTION WIDTH 12.6 % (11.5-14.0); SEGMENTED NEUTROPHILS % (AUTO) 80.9 % (42-78); TOTAL CELLS COUNTED % (AUTO) 100 %; WHITE BLOOD COUNT 11.4 10^3/uL (4.0-10.5)
[2017-11-01 13:50] LABS: URINE AMPHETAMINES SCREEN NEGATIVE; URINE BARBITURATES SCREEN NEGATIVE; URINE BENZODIAZEPINES SCREEN NEGATIVE; URINE COCAINE SCREEN NEGATIVE; URINE MARIJUANA (THC) SCREEN NEGATIVE; URINE METHADONE SCREEN NEGATIVE; URINE PHENCYCLIDINE SCREEN NEGATIVE
[2017-11-01 13:59] LABS: ALANINE AMINOTRANSFERASE 16 U/L (9-52); ALBUMIN 3.5 g/dL (3.5-5.0); ALKALINE PHOSPHATASE 136 U/L (38-126); ANION GAP 6 (5-19); ASPARTATE AMINO TRANSFERASE 21 U/L (14-36); BILIRUBIN,DIRECT 0.2 mg/dL (0.0-0.4); BILIRUBIN,TOTAL 0.3 mg/dL (0.2-1.3); BLOOD UREA NITROGEN 3 mg/dL (7-20); CALCIUM 9.6 mg/dL (8.4-10.2); CARBON DIOXIDE 25 mmol/L (22-30); CHLORIDE 107 mmol/L (98-107); GLUCOSE 76 mg/dL (75-110); POTASSIUM 4.1 mmol/L (3.6-5.0); SODIUM 138.3 mmol/L (137-145); TOTAL PROTEIN 6.9 g/dL (6.3-8.2); URIC ACID 4.1 mg/dL (2.5-6.2)
[2017-11-01 14:05] LABS: UR PRO/CREAT RATIO RESULT 0.3 mg/mg (0.0-0.2); URINE CREATININE 47.5 mg/dL (16-327); URINE PROTEIN 16.3 mg/dL (<12)
--- NOTE | 2017-11-01 15:06 | Non Stress Test Report ---
Non Stress Test Datetime Report Generated by CPN: 11/01/2017 15:06 DEMOGRAPHIC EGA NST: 35.1 INDICATION Indication for Study: Ordered by Provider Indication for Study (NST) Other: PRE-E W/U MONITORING Monitor Explained: Monitor Explained; Test Explained; Patient Verbalized Understanding Time on Monitor: 11/01/2017 12:32 Time off Monitor: 11/01/2017 13:50 NST Duration: 78 NST INTERVENTIONS NST Interventions: PO Hydration; Reposition Patient Physician Notified NST: DR FRYE BABY A: [id number] BABY A Movement : Present Contraction Frequency : NONE FHR Baseline : 135 Accelerations : 15X15 Decelerations : None Variability : Moderate 6-25bpm NST Review: Meets Criteria for Reactive NST NST Review and Verified By : Tammy Camp RNC NST Results: Reactive NST REPORT Report Trigger: Send Report
== END 2017-11-01 14:50 | disposition home or self-care (01) ==
LOC: LC 12:18
PROVIDERS: ATTEND Student in an Organized Health Care Education/Training Program
PROC: 4A1HXCZ Monitoring of Products of Conception, Cardiac Rate, External Approach (ICD-10-PCS; principal; 2017-11-01)
DX: O16.3 Unspecified maternal hypertension, third trimester (principal); Z3A.35 35 weeks gestation of pregnancy
CPT/HCPCS: 36415; 59025; 80053; 80307; 81001; 82570; 83615; 84156; 84550; 85025

== ENCOUNTER 2017-11-17 19:13 | Observation (INO) | payer MEDICAID ==
[2017-11-17 19:57] LABS: APPEARANCE,URINE CLEAR; BILIRUBIN,URINE NEGATIVE (NEGATIVE); COLOR,URINE YELLOW; GLUCOSE, URINE NEGATIVE (NEGATIVE); KETONES,URINE NEGATIVE (NEGATIVE); LEUKOCYTE ESTERASE,URINE NEGATIVE (NEGATIVE); NITRITE,URINE NEGATIVE (NEGATIVE); PROTEIN,URINE NEGATIVE (NEGATIVE); URINE SPECIFIC GRAVITY 1.008; UROBILINOGEN,URINE NEGATIVE mg/dL (<2.0)
[2017-11-17 20:14] LABS: URINE AMPHETAMINES SCREEN NEGATIVE; URINE BARBITURATES SCREEN NEGATIVE; URINE BENZODIAZEPINES SCREEN NEGATIVE; URINE COCAINE SCREEN NEGATIVE; URINE MARIJUANA (THC) SCREEN NEGATIVE; URINE METHADONE SCREEN NEGATIVE; URINE PHENCYCLIDINE SCREEN NEGATIVE
[2017-11-17 20:37] LABS: ABSOLUTE BASOPHILS # (AUTO) 0.1 10^3/uL (0.0-0.2); ABSOLUTE EOSINOPHILS # (AUTO) 0.2 10^3/uL (0.0-0.6); ABSOLUTE MONOCYTES (AUTO) 0.7 10^3/uL (0.1-1.4); ABSOLUTE NEUT (AUTO) 9.2 10^3/uL (1.7-8.2); EOSINOPHILS % (AUTO) 1.3 % (0-6); HEMATOCRIT 40.9 % (36.0-47.0); HEMOGLOBIN 14.3 g/dL (12.0-15.5); LYMPHOCYTES % (AUTO) 16.7 % (13-45); MEAN CORPUSCULAR HEMOGLOBIN 31.1 pg (27.0-33.4); MEAN CORPUSCULAR HGB CONC 34.9 g/dL (32.0-36.0); MEAN CORPUSCULAR VOLUME 89 fl (80-97); MONOCYTES % (AUTO) 5.4 % (3-13); PLATELET COUNT 224 10^3/uL (150-450); RED BLOOD COUNT 4.59 10^6/uL (3.72-5.28); RED CELL DISTRIBUTION WIDTH 12.7 % (11.5-14.0); SEGMENTED NEUTROPHILS % (AUTO) 75.6 % (42-78); TOTAL CELLS COUNTED % (AUTO) 100 %; WHITE BLOOD COUNT 12.1 10^3/uL (4.0-10.5)
[2017-11-17 20:59] LABS: ALANINE AMINOTRANSFERASE 19 U/L (9-52); ALBUMIN 3.6 g/dL (3.5-5.0); ALKALINE PHOSPHATASE 167 U/L (38-126); ANION GAP 10 (5-19); ASPARTATE AMINO TRANSFERASE 23 U/L (14-36); BILIRUBIN,DIRECT 0.3 mg/dL (0.0-0.4); BILIRUBIN,TOTAL 0.4 mg/dL (0.2-1.3); BLOOD UREA NITROGEN 3 mg/dL (7-20); CALCIUM 9.4 mg/dL (8.4-10.2); CARBON DIOXIDE 23 mmol/L (22-30); CHLORIDE 105 mmol/L (98-107); GLUCOSE 77 mg/dL (75-110); POTASSIUM 4.4 mmol/L (3.6-5.0); SODIUM 137.8 mmol/L (137-145); TOTAL PROTEIN 6.8 g/dL (6.3-8.2); URIC ACID 4.6 mg/dL (2.5-6.2)
[2017-11-17 21:38] LABS: UR PRO/CREAT RATIO RESULT 0.3 mg/mg (0.0-0.2); URINE CREATININE 50.9 mg/dL (16-327)
[2017-11-17] MEDS ORDERED: NIFEDIPINE 30 MG TAB.ER.24 PO ONE ×2 (21:38→23:00)
[2017-11-17] MEDS ORDERED: RINGERS SOLUTION,LACTATED 1,000 ML IV ONE (22:00)
--- NOTE | 2017-11-17 22:09 | Admission Physical ---
Datetime Report Generated by CPN: 11/17/2017 22:09 CURRENT ADMISSION Chief Complaint: Signs/Symptoms Gestational HTN Indication for Induction: Not Applicable Admit Impression : Term, Intrauterine ; No Active Labor; Intact Membranes; Observation/Evaluation Admit Plan: Admit to Unit ALLERGIES Medication Allergies: No Medication Allergies: No Known Allergies (11/17/2017) Latex: No Latex Allergies Food Allergies: N/A Environmental Allergies: N/A OBSTETRICAL HISTORY EDC: 12/05/2017 00:00 : 2 Para: 0 Term: 0 : 0 SAB: 0 IAB: 0 Ectopic: 0 Livin Cesareans: 0 VBACs: 0 Multiple Births: 0 Gestational Diabetes: No Rh Sensitization: No Incompetent Cervix: No SONA: No Infertility: No ART Treatment: No Uterine Anomaly: No IUGR: No Hx Previous C/S: No Macrosomia: No Hx Loss/Stillborn: No PIH: No Hx : No Placenta Previa/Abruption: No Depression/PP Depression: No PTL/PROM: No Post Hemorrhage: No Current Procedures: Ultrasound; NST Obstetrical History Comments: G1- SAB G2- current SEE RECORDS Alcohol: No Marijuana : No Cocaine: No Other Illicit Drugs: No Cigarettes: Current Everyday Smoker. [id number] MEDICAL HISTORY Diabetes: No Blood Transfusion: No Pulmonary Disease (Asthma, TB): No Breast Disease: No Hypertension: Yes Hotel Valet Attendant Surgery: No Heart Disease: No Hosp/Surgery: No Autoimmune Disorder: No Anesthetic Complications: No Kidney Disease: No Abnormal Pap Smear: No Neuro/Epilepsy: No Psychiatric Disorders: No Other Medical Diseases: No Hepatitis/Liver Disease: Yes Significant Family History: No Varicosities/Phlebitis: No Trauma/Violence : No Thyroid Dysfunction: No Medical History Comments: Hep C, endometriosis, HTN INFECTIOUS HISTORY Gonorrhea: No Genital Herpes: No Chlamydia: No Tuberculosis: No Syphilis: No Hepatitis: No HIV/AIDS Exposure: No Rash or Viral Illness: No HPV: No PHYSICAL EXAM General: Normal HEENT: Normal Neurologic: Normal Thyroid: Deferred Heart: Normal Lungs: Normal Breast: Deferred Back: Normal Abdomen: Normal Genitourinary Exam: Normal Extremities: Normal DTRs: Normal Pelvic Type: Adequate Vital Signs: Reviewed Details Vital Signs: mild range VAGINAL EXAM Contraction Comments: irreg [place] Membranes: Intact FETUS A EGA: 37.3 Monitoring: External US FHR- Baseline: 120 Variability: Moderate 6-25bpm Accelerations: 15X15 Decelerations: None FHR Category: Category I Presentation: Vertex Admit Comment: 27yo at 37+3ega presents for evaluation from the office due to elevated BPs in the office. She has been out of her subutex since Tuesday - she feels this is why her BP is elevated and wanted to leave AMA. She however decided to stay. Labs unremarkable. GBS collected. Will collect 24 hour UTP. SMoker, LUPE 3.7% at 33wks. Hep C on initial labs - Hep C virus undetectable on 10/27 at [facility]. Admit for obervation and antihypertensives and collection of 24 hr UTP. PLANS FOR LABOR AND DELIVERY Benefit of Breast Feed Discussed: Yes INFORMED CONSENT Informed Consent Obtained: Risks, Benefits and Alternatives Discussed Signature: with User ID: [email or web address]
[2017-11-17] MEDS ORDERED: HYDRALAZINE HCL INJ/PF 20 MG/1 ML SDV IV ONE (22:24)
[2017-11-17] MEDS ORDERED: NIFEDIPINE 30 MG TAB.ER.24 PO SCH (23:00)
[2017-11-18] MEDS ORDERED: NIFEDIPINE 30 MG TAB.ER.24 PO ONE (09:34)
[2017-11-18] MEDS ORDERED: NIFEDIPINE 30 MG TAB.ER.24 PO SCH (10:00)
== END 2017-11-18 10:35 | disposition home or self-care (01) ==
LOC: LC 19:13 → LR 21:12
PROVIDERS: ADMIT Student in an Organized Health Care Education/Training Program; ATTEND Student in an Organized Health Care Education/Training Program
PROC: 4A0HXCZ Measurement of Products of Conception, Cardiac Rate, External Approach (ICD-10-PCS; principal; 2017-11-18)
DX: O13.9 Gestational [pregnancy-induced] hypertension without significant proteinuria, unspecified trimester (principal); O99.333 Smoking (tobacco) complicating pregnancy, third trimester; F17.200 Nicotine dependence, unspecified, uncomplicated; Z3A.37 37 weeks gestation of pregnancy; Z86.19 Personal history of other infectious and parasitic diseases; Z87.42 Personal history of other diseases of the female genital tract
CPT/HCPCS: 59025; 36415; 83615; 84156; 84550; 82570; 85025; 81005; 80053; 87081; 80307; G0378 ×2; G0379; J3490 ×2

== ENCOUNTER 2017-11-29 19:06 | Inpatient (IN) | payer MEDICAID ==
[2017-11-29 19:58] LABS: APPEARANCE,URINE CLEAR; BILIRUBIN,URINE NEGATIVE (NEGATIVE); COLOR,URINE YELLOW; GLUCOSE, URINE NEGATIVE (NEGATIVE); KETONES,URINE NEGATIVE (NEGATIVE); LEUKOCYTE ESTERASE,URINE NEGATIVE (NEGATIVE); NITRITE,URINE NEGATIVE (NEGATIVE); PROTEIN,URINE NEGATIVE (NEGATIVE); URINE SPECIFIC GRAVITY 1.012; UROBILINOGEN,URINE NEGATIVE mg/dL (<2.0)
[2017-11-29 20:17] LABS: ALANINE AMINOTRANSFERASE 20 U/L (9-52); ALBUMIN 3.9 g/dL (3.5-5.0); ALKALINE PHOSPHATASE 196 U/L (38-126); ANION GAP 9 (5-19); ASPARTATE AMINO TRANSFERASE 27 U/L (14-36); BILIRUBIN,DIRECT 0.3 mg/dL (0.0-0.4); BILIRUBIN,TOTAL 0.6 mg/dL (0.2-1.3); BLOOD UREA NITROGEN 3 mg/dL (7-20); CALCIUM 9.4 mg/dL (8.4-10.2); CARBON DIOXIDE 23 mmol/L (22-30); CHLORIDE 105 mmol/L (98-107); GLUCOSE 87 mg/dL (75-110); POTASSIUM 4.5 mmol/L (3.6-5.0); SODIUM 137.3 mmol/L (137-145); TOTAL PROTEIN 7.5 g/dL (6.3-8.2); URIC ACID 5.4 mg/dL (2.5-6.2)
[2017-11-29 20:21] LABS: URINE AMPHETAMINES SCREEN NEGATIVE; URINE BARBITURATES SCREEN NEGATIVE; URINE BENZODIAZEPINES SCREEN NEGATIVE; URINE COCAINE SCREEN NEGATIVE; URINE METHADONE SCREEN NEGATIVE; URINE PHENCYCLIDINE SCREEN NEGATIVE
[2017-11-29 20:26] LABS: UR PRO/CREAT RATIO RESULT 0.1 mg/mg (0.0-0.2); URINE CREATININE 100.2 mg/dL (16-327); URINE PROTEIN 14.2 mg/dL (<12)
[2017-11-29 20:31] LABS: URINE MARIJUANA (THC) SCREEN UNCONFIRMED POSITIVE
[2017-11-29] MEDS ORDERED: DINOPROSTONE 10 MG VAGINAL INSERT.SR PV PRN (20:32)
[2017-11-29] MEDS ORDERED: RINGERS SOLUTION,LACTATED 300 ML IV ONE (20:32)
[2017-11-29 20:53] LABS: ABSOLUTE BASOPHILS # (AUTO) 0.2 10^3/uL (0.0-0.2); ABSOLUTE EOSINOPHILS # (AUTO) 0.3 10^3/uL (0.0-0.6); ABSOLUTE LYMPHOCYTES (AUTO) 1.8 10^3/uL (0.5-4.7); ABSOLUTE MONOCYTES (AUTO) 0.6 10^3/uL (0.1-1.4); ABSOLUTE NEUT (AUTO) 10.1 10^3/uL (1.7-8.2); BASOPHILS % (AUTO) 1.3 % (0-2); EOSINOPHILS % (AUTO) 2.4 % (0-6); HEMATOCRIT 45.4 % (36.0-47.0); HEMOGLOBIN 15.8 g/dL (12.0-15.5); LYMPHOCYTES % (AUTO) 14.1 % (13-45); MEAN CORPUSCULAR HEMOGLOBIN 31.1 pg (27.0-33.4); MEAN CORPUSCULAR HGB CONC 34.8 g/dL (32.0-36.0); MEAN CORPUSCULAR VOLUME 89 fl (80-97); MONOCYTES % (AUTO) 4.7 % (3-13); PLATELET COUNT 168 10^3/uL (150-450); RED BLOOD COUNT 5.09 10^6/uL (3.72-5.28); RED CELL DISTRIBUTION WIDTH 12.9 % (11.5-14.0); SEGMENTED NEUTROPHILS % (AUTO) 77.5 % (42-78); TOTAL CELLS COUNTED % (AUTO) 100 %
--- NOTE | 2017-11-29 20:56 | Admission Physical ---
Datetime Report Generated by CPN: 11/29/2017 20:55 CURRENT ADMISSION Chief Complaint: Sent from OB Office for Evaluation and Treatment - Please Specify Indication for Induction: Gestational HTN Indication for Induction- Other: multiple severe range pressures. 262 in 24 hour urine last month. Admit Impression : Term, Intrauterine ; Induction of Labor; Medical Complication Admit Plan: Admit to Unit; Initiate Labor Induction Protocol ALLERGIES Medication Allergies: No Medication Allergies: No Known Allergies (11/29/2017) Latex: No Latex Allergies Food Allergies: N/A Environmental Allergies: N/A OBSTETRICAL HISTORY EDC: 12/05/2017 00:00 : 2 Para: 0 Term: 0 : 0 SAB: 0 IAB: 0 Ectopic: 0 Livin Cesareans: 0 VBACs: 0 Multiple Births: 0 Gestational Diabetes: No Rh Sensitization: No Incompetent Cervix: No SONA: No Infertility: No ART Treatment: No Uterine Anomaly: No IUGR: No Hx Previous C/S: No Macrosomia: No Hx Loss/Stillborn: No PIH: Yes Hx : No Placenta Previa/Abruption: No Depression/PP Depression: No PTL/PROM: No Post Hemorrhage: No Current Procedures: Ultrasound; NST Obstetrical History Comments: G1- SAB G2- current SEE RECORDS Alcohol: No Marijuana : No Cocaine: No Other Illicit Drugs: No Cigarettes: Current Everyday Smoker. 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 Heart Disease: No Hosp/Surgery: No Autoimmune Disorder: No Anesthetic Complications: No Kidney Disease: No Abnormal Pap Smear: No Neuro/Epilepsy: No Psychiatric Disorders: No Other Medical Diseases: No Hepatitis/Liver Disease: Yes Significant Family History: No Varicosities/Phlebitis: No Trauma/Violence : No Thyroid Dysfunction: No Medical History Comments: Hep C, endometriosis, HTN INFECTIOUS HISTORY Gonorrhea: No Genital Herpes: No Chlamydia: No Tuberculosis: No Syphilis: No Hepatitis: No HIV/AIDS Exposure: No Rash or Viral Illness: No HPV: No PHYSICAL EXAM General: Normal HEENT: Normal Neurologic: Normal Thyroid: Normal Heart: Normal Lungs: Normal Breast: Normal Back: Normal Abdomen: Normal Genitourinary Exam: Normal Extremities: Normal DTRs: Normal Pelvic Type: Adequate Vital Signs: Reviewed Details Vital Signs: multiple severe range pressures VAGINAL EXAM Dilatation: 0 Effacement: 25 Station: 0 Contraction Comments: irreg [place] Pooling: Negative Membranes: Intact FETUS A EGA: 39.1 Monitoring: External US FHR- Baseline: 160 Variability: Moderate 6-25bpm Accelerations: 15X15 Decelerations: None FHR Category: Category I Estimated Weight (gm): 3200 Presentation: Vertex Admit Comment: d/w patient r/b/alternatives and that in light of her severe range pressures I recommend IOL. Discussed possibility of c/section, pph and other potential for adverse outcomes including eclampsia and HELLP syndrome. PLANS FOR LABOR AND DELIVERY Labor and Delivery: None Pain Management: Epidural Feeding Preference: Breast Benefit of Breast Feed Discussed: Yes Circumcision: N/A INFORMED CONSENT Informed Consent Obtained: Risks, Benefits and Alternatives Discussed Signature: with User ID: [email or web address]
[2017-11-29] MEDS ORDERED: LIDOCAINE 1% INJ-PF (10 MG/ML) 30 ML SDV ONE (21:00)
[2017-11-29] MEDS ORDERED: ZOLPIDEM TARTRATE 5 MG TABLET PO PRN (21:20)
[2017-11-29] MEDS ORDERED: HYDRALAZINE HCL INJ/PF 20 MG/1 ML SDV IV ONE (21:20)
--- NOTE | 2017-11-29 21:46 | OPERATIVE REPORT E ---
Operative Report NAME: SYEDA SHANNON : 1990 AGE: 27Y DATE OF SURGERY: 11/29/2017 ROOM: LR200 PREOPERATIVE DIAGNOSIS: POOR VEINS FOR INTRAVENOUS ACCESS AND PATIENT NEEDED TO BE INDUCED FOR LABOR. POSTOPERATIVE DIAGNOSIS: POOR VEINS FOR INTRAVENOUS ACCESS AND PATIENT NEEDED TO BE INDUCED FOR LABOR. OPERATION: Placement of right internal jugular vein triple lumen catheter under ultrasound guidance. SURGEON: BARBARA PONCE M.D. ANESTHESIA: Local. INDICATION: This is a 27-year-old female who needed induction of labor. She was stuck several times in both arms and unable to get a good IV access. PROCEDURE: The patient was placed in Trendelenburg position, and the right neck prepped and draped in the usual sterile fashion. Using ultrasound, the right internal jugular vein was then identified. An appropriate timeout was then called. Next, local anesthesia infiltrated along the path of the internal jugular vein, just above the clavicle. The internal jugular vein was then punctured and guidewire passed through the needle toward the area of the superior vena cava. The needle was removed and the puncture site dilated. Triple lumen catheter was inserted through the guidewire for a distance of about 15 cm. The catheter was then anchored to the skin with 3-0 silk, and all 3 ports aspirated blood easily and instilled saline easily. Biopatch placed at the insertion site, transparent sterile dressing placed over the Biopatch and catheter. The patient tolerated the procedure well. Chest x-ray will be obtained for placement. DICTATING PHYSICIAN: BARBARA PONCE M.D. [id number] PHY#: [id number] ID: [id number] JOB#: [id number] ACCT: [id number] cc:BARBARA PONCE M.D. >
--- NOTE | 2017-11-29 21:56 | RADIOLOGY REPORT (SQ) ---
XR CHEST 1 VIEW HISTORY: Central Line Placement Confirmation. COMPARISON: 09/15/2016 FINDINGS/IMPRESSION: New right IJ line with the tip in the right atrium. No discernible pneumothorax. Normal cardiomediastinal silhouette. Lungs are clear. No pleural effusions. No acute osseous findings.
[2017-11-29] MEDS ORDERED: HYDRALAZINE HCL INJ/PF 20 MG/1 ML SDV ONE (22:01)
[2017-11-29] MEDS ORDERED: DINOPROSTONE 10 MG VAGINAL INSERT.SR ONE (22:37)
[2017-11-29] MEDS ORDERED: ZOLPIDEM TARTRATE 5 MG TABLET ONE ×2 (22:37→22:39)
[2017-11-30] MEDS: RINGERS SOLUTION,LACTATED 1,000 ML IV PRN (00:16)
[2017-11-30 00:24] LABS: RUBELLA IGG ANTIBODY 2.61 IU/mL
[2017-11-30 00:25] LABS: RUBELLA INTERPRETATION NEGATIVE
[2017-11-30] MEDS ORDERED: ZOLPIDEM TARTRATE 5 MG TABLET PO PRN (07:34)
--- NOTE | 2017-11-30 08:43 | L&D Progress Notes ---
PROGRESS NOTES Datetime Report Generated by CPN: 11/30/2017 08:42 PROGRESS NOTE Plan: Continue Present Management; Induction Informed Consent Obtained: Risks, Benefits and Alternatives Discussed Comment: Denies HALL, Vis changes, Feeling uncomfortable with Contractions DTRs 2+/2+ No clonus VAGINAL EXAM Contractions: irreg MEMBRANES Pooling: Negative Membranes: Intact Membranes: Intact FETUS A FHR - Baseline: 120 Monitoring: External US Variability: Minimal - Undetectable to <=5bpm : 39.1 Presentation: Vertex Presentation: Vertex SIGNATURE SIGNATURE: [id number] SIGNATURE: [id number] SIGNATURE: ,[id number] SIGNATURE: ,[id number] Assignment: Judy Ross MD Signature: with User ID: [email or web address] : with User ID: [email or web address]
[2017-11-30] MEDS: BUPRENORPHINE HCL 2 MG SUBLINGUAL TABLET SL SCH ×2 (09:45→17:36)
[2017-11-30] MEDS ORDERED: NIFEDIPINE 30 MG TAB.ER.24 PO ONE (09:55)
[2017-11-30] MEDS: NIFEDIPINE 30 MG TAB.ER.24 PO SCH (10:27)
[2017-11-30] MEDS ORDERED: SIMETHICONE 80 MG TAB.CHEW PO ONE (10:53)
[2017-11-30] MEDS ORDERED: SIMETHICONE 80 MG TAB.CHEW ONE (10:55)
[2017-11-30 11:00] LABS: MEAN CORPUSCULAR HEMOGLOBIN 30.8 pg (27.0-33.4); MEAN CORPUSCULAR HGB CONC 34.3 g/dL (32.0-36.0); MEAN CORPUSCULAR VOLUME 90 fl (80-97); PLATELET COUNT 187 10^3/uL (150-450); RED BLOOD COUNT 4.23 10^6/uL (3.72-5.28); RED CELL DISTRIBUTION WIDTH 12.9 % (11.5-14.0); WHITE BLOOD COUNT 11.6 10^3/uL (4.0-10.5)
[2017-11-30 11:12] LABS: ALANINE AMINOTRANSFERASE 21 U/L (9-52); ALBUMIN 2.8 g/dL (3.5-5.0); ALKALINE PHOSPHATASE 147 U/L (38-126); ANION GAP 10 (5-19); ASPARTATE AMINO TRANSFERASE 20 U/L (14-36); BILIRUBIN,TOTAL 0.4 mg/dL (0.2-1.3); BLOOD UREA NITROGEN 4 mg/dL (7-20); CALCIUM 8.9 mg/dL (8.4-10.2); CARBON DIOXIDE 22 mmol/L (22-30); CHLORIDE 106 mmol/L (98-107); GLUCOSE 116 mg/dL (75-110); POTASSIUM 3.6 mmol/L (3.6-5.0); TOTAL PROTEIN 5.7 g/dL (6.3-8.2); URIC ACID 5.7 mg/dL (2.5-6.2)
[2017-11-30] MEDS ORDERED: OXYTOCIN/NORMAL SALINE 20 UNIT/1,000 ML RTUINJ ONE (12:28)
[2017-11-30] MEDS ORDERED: OXYTOCIN/NORMAL SALINE 20 UNIT/1,000 ML RTUINJ IV PRN (12:32)
--- NOTE | 2017-11-30 17:45 | L&D Progress Notes ---
PROGRESS NOTES Datetime Report Generated by CPN: 11/30/2017 17:45 PROGRESS NOTE Procedures: Sterile Vag Exam Plan: Continue Present Management Vital Signs : Reviewed Comment: Pt upset about being induced, doesn't want to be checked, doesn't want membranes ruptured and doesn't want to have the baby until tomorrow. Explained reason for induction, pt states her blood pressure is fine now and we don't need to be in a hurry. FETUS A FHR - Baseline: 125 Monitoring: External US Variability: Moderate 6-25bpm Decelerations: None : 39.2 FETUS C SIGNATURE: [id number];13,[id number];10,[id number] Assignment: Judy Ross MD Signature: with User ID: [email or web address] : with User ID: [email or web address]
--- NOTE | 2017-11-30 20:55 | L&D Progress Notes ---
PROGRESS NOTES Datetime Report Generated by CPN: 11/30/2017 20:54 PROGRESS NOTE Impression: Normal Progression of Labor Procedures: Artificial ROM Plan: Continue Present Management Informed Consent Obtained: Vaginal Delivery Vital Signs : Reviewed Vital Signs Comments: BP elevated--pt painful and tearful Comment: AROM--clear fluid; pt painful; will allow epidural in 30 minutes; pit @ 8 VAGINAL EXAM Dilatation: 3 Effacement: 80 Station: -3 Contractions: q 2-4 min MEMBRANES Amniotic Fluid Color: Clear FETUS A FHR - Baseline: 120s Variability: Moderate 6-25bpm Accelerations: 15X15 Decelerations: None FHR Category: Category I FETUS C SIGNATURE: [id number];[id number];[id number] Signature: with User ID: [email or web address]
[2017-11-30] MEDS ORDERED: MISOPROSTOL 0.2 MG TABLET ONE (21:17)
[2017-11-30] MEDS ORDERED: FENTANYL/BUPIVACAINE/NS/PF 300 MCG/150 ML RTUINJ EPI ONE (21:17)
[2017-11-30] MEDS ORDERED: EPHEDRINE SULFATE INJ 50 MG/1 ML AMPULE ONE (21:17)
[2017-11-30] MEDS ORDERED: BUPIVACAINE HCL 0.5 % INJ/PF 30 ML SDV ONE (21:18)
[2017-12-01] MEDS ORDERED: ACETAMINOPHEN 325 MG TABLET ONE (00:37)
[2017-12-01] MEDS ORDERED: ACETAMINOPHEN 325 MG TABLET PO ONE (00:45)
[2017-12-01] MEDS ORDERED: ACETAMINOPHEN WITH CODEINE #3 TABLET PO PRN (03:02)
[2017-12-01] MEDS ORDERED: DIPH/PERTUSS(ACELL)/TETANUS VAC/PF 0.5 ML SYR (>=10YO) IM PRN ×2 (03:02→15:00)
[2017-12-01] MEDS ORDERED: DIBUCAINE 1% OINTMENT 28 GM TP PRN (03:02)
[2017-12-01] MEDS ORDERED: ZOLPIDEM TARTRATE 5 MG TABLET PO PRN (03:02)
[2017-12-01] MEDS ORDERED: OXYTOCIN/NORMAL SALINE 20 UNIT/1,000 ML RTUINJ IV PRN (03:02)
[2017-12-01] MEDS ORDERED: MEASLES,MUMPS&RUBELLA VACC/PF 0.5 ML VIAL SUBCUT PRN ×2 (03:02→15:00)
[2017-12-01] MEDS ORDERED: BENZOCAINE/MENTHOL AEROSOL SPRAY 56 ML TOP PRN (03:02)
[2017-12-01] MEDS ORDERED: IBUPROFEN 800 MG TABLET ONE (03:50)
[2017-12-01] MEDS ORDERED: ACETAMINOPHEN WITH CODEINE #3 TABLET ONE (03:50)
[2017-12-01] MEDS: ACETAMINOPHEN WITH CODEINE #3 TABLET PO PRN ×3 (03:58→20:22)
[2017-12-01] MEDS: RINGERS SOLUTION,LACTATED 1,000 ML IV PRN (03:59)
--- NOTE | 2017-12-01 04:59 | Delivery Summary ---
Del Sum A-C Datetime Report Generated by CPN: 12/01/2017 04:59 DELIVERY PERSONNEL DELIVERY PERSONNEL: [id number] Delivery Doctor:: Judy Ross MD Labor and Delivery Nurse:: Nelsy Prado RNwax blender Nurse:: Luh Hidalgo RN Nursery Nurse:: Lena Sims RN Electronics Technician/STUDY MANAGER: Terri Brian, MANUFACTURING ENGINEERING INTERN MATERNAL INFORMATION Delivery Anesthesia: Epidural Medications After Delivery: Pitocin Bolus-Please Comment Maternal Complications: None; Other Complication Details: Hx of drug abuse, patient on subutex. Provider Comments: of a viable female at 0228 with an ILEANA presentation; APGARS 8@1, 9@ 5 with a wt of 5#14oz; 2nd deg vaginal and 1st deg periurethral lacs LABOR SUMMARY EDC: 12/05/2017 00:00 No. Babies in Womb: 1 Attempted: No Labor Anesthesia: Epidural LABOR INFORMATION Reason for Induction: Chronic Primary/Essential HTN; Gestational Hypertension; Pre-Eclampsia Reason for Induction- Other: Illicit Drug Use Dependence Onset of Labor: 11/30/2017 20:40 Complete Dilatation: 12/01/2017 01:30 Cervical Ripening Agents: Cervidil Oxytocin: Induction Group B Beta Strep: Negative Antibiotics # of Doses: 0 Steroids Given: None Reason Steroids Not Administered: Not Applicable MEMBRANES Membranes Rupture Method: Artificial Rupture of Membranes: 11/30/2017 20:40 Length of Rupture (hr): 5.80 Amniotic Fluid Color: Clear Amniotic Fluid Amount: Large Amniotic Fluid Odor: Normal STAGES OF LABOR Stage 1 hr: 4 Stage 1 min: 50 Stage 2 hr: 0 Stage 2 min: 58 Stage 3 hr: 0 Stage 3 min: 3 Total Time in Labor hr: 5 Total Time in Labor min: 51 VAGINAL DELIVERY Episiotomy: None Laceration #1: Vaginal Laceration Extension #1: Second Degree Laceration #2: Periurethral Laceration Extension #2: First Degree Laceration Repair: Yes Laceration Repair Note: Both lacerations repaired with 2-0 vicryl--no complications; anesthetized with lidocaine Sponge Count Correct: N/A Sharps Count Correct: Yes CSECTION DELIVERY Primary Indication: N/A Secondary Indication: N/A CSection Incidence: N/A Labor: N/A Elective: N/A CSection Incision: N/A BABY A INFORMATION Delivery Date/Time: 12/01/2017 02:28 Method of Delivery: Vaginal Born in Route : No : N/A Forceps: N/A Vacuum Extraction: N/A Shoulder Dystocia : No PRESENTATION/POSITION BABY A Presentation: Cephalic Cephalic Presentation: Vertex Vertex Position: Right Occipital Anterior Breech Presentation: N/A PLACENTA INFORMATION BABY A Placenta Delivery Time : 12/01/2017 02:31 Placenta Method of Delivery: Spontaneous Placenta Status: Delivered SCORES BABY A Heart Rate 1 min: >100 bpm Resp Effort 1 min: Good Cry Reflex Irritability 1 min: Cough or Sneeze or Pulls Away Muscle Tone 1 min: Active Motion Color 1 min: Blue/Pale SCORE 1 MIN: 8 Heart Rate 5 min: >100 bpm Resp Effort 5 min: Good Cry Reflex Irritability 5 min: Cough or Sneeze or Pulls Away Muscle Tone 5 min: Active Motion Color 5 min: Body Road Runner, Extremities Blue SCORE 5 MIN: 9 INFANT INFORMATION BABY A Gestational Age at Delivery: 39.3 Gestational Status: Full Term- 39- 40.6 Weeks Outcome : Liveborn Condition : Stable Sex: Female IDENTIFICATION BABY A Infant Verification Date/Time: 12/01/2017 02:36 ID Band Number: [id number] Mother's Name Verified: Yes Infant RN Verifying : M HILL RN N PRADO RN WEIGHT/LENGTH BABY A Infant Birthweight (gm): 2660 Weight (lb): 5 Infant Weight (oz): 14 Infant Length (in): 18.50 Length (cm): 46.99 CORD INFORMATION BABY A No. Cord Vessels: 3 Nuchal Cord : N/A Cord Blood Taken: Yes-For Storage (Mom's Blood type +) Suction: Mouth; Nose ASSESSMENT BABY A Skin to Skin: Yes BABY B INFORMATION : N/A SIGNATURES Signature: with User ID: [email or web address] : I was personally available for consultation and serving as supervising physician for the MLP.
[2017-12-01] MEDS: IBUPROFEN 800 MG TABLET PO SCH ×3 (06:28→21:38)
[2017-12-01] MEDS ORDERED: HYDRALAZINE HCL INJ/PF 20 MG/1 ML SDV IV ONE (06:30)
--- NOTE | 2017-12-01 09:19 | PDOC PROGRESS REPORT ---
Subjective-OB Progress Note for:: 12/01/17 Subjective: Doing well, no c/o, Physical Exam (OB) Vital Signs: Temp Pulse Resp BP Pulse Ox 97.8 F 80 18 136/90 H 97 12/01/17 07:58 12/01/17 07:58 12/01/17 07:58 12/01/17 07:58 12/01/17 07:58 Intake & Output 11/30/17 12/01/17 12/02/17 06:59 06:59 06:59 Intake Total 1000 Balance 1000 Weight 62 kg - PIH/Pre-Eclampsia DTR's: 1 + Clonus: Negative Headache: Absent Epigastric Pain: No Visual Changes: No - Lochia Lochia Amount: Scant < 10 ml Lochia Color: Rubra/Red - Abdomen Description: Firm Hernia Present: No Fundal Description: Firm Fundal Height: u/u - u/2 Objective-Diagnostic Laboratory: 11/30/17 10:23 11/30/17 10:23 11/30/17 11/30/17 10:23 10:23 WBC 11.6 H RBC 4.23 Hgb 13.0 D Hct 38.0 MCV 90 MCH 30.8 MCHC 34.3 RDW 12.9 Plt Count 187 Sodium 138.0 Potassium 3.6 Chloride 106 Carbon Dioxide 22 Anion Gap 10 BUN 4 L Creatinine 0.56 Est GFR ( Amer) > 60 Est GFR (Non-Af Amer) > 60 Glucose 116 H Uric Acid 5.7 Calcium 8.9 Total Bilirubin 0.4 AST 20 ALT 21 Alkaline Phosphatase 147 H Total Protein 5.7 L Albumin 2.8 L Assessment and Plan(PN) - Assessment and Plan (1) Delivery normal Is this a current diagnosis for this admission?: Yes (2) Gestational hypertension Qualifiers: Trimester: unspecified trimester Qualified Code(s): O13.9 - Gestational [ -induced] hypertension without significant proteinuria, unspecified trimester Is this a current diagnosis for this admission?: Yes (3) Opioid dependence on agonist therapy Is this a current diagnosis for this admission?: Yes - Time Spent with Patient Time with patient: Less than 15 minutes Medications reviewed and adjusted accordingly: Yes - Disposition Anticipated Discharge: Home Within: within 24 hours
[2017-12-01] MEDS: NICOTINE 21 MG/24 HR PATCH.TD24 TD SCH (10:00)
[2017-12-01] MEDS: NIFEDIPINE 30 MG TAB.ER.24 PO SCH (10:00)
[2017-12-01] MEDS: PRENATAL VITAMIN W DHA CAPSULE PO SCH (10:00)
[2017-12-01] MEDS: FERROUS SULFATE 325 MG TABLET PO SCH ×2 (10:01→17:23)
[2017-12-01] MEDS: BUPRENORPHINE HCL 2 MG SUBLINGUAL TABLET SL SCH ×2 (10:01→17:23)
[2017-12-01] MEDS: DOCUSATE SODIUM 100 MG CAPSULE PO SCH ×2 (10:01→17:23)
[2017-12-01] MEDS: SENNOSIDES/DOCUSATE 8.6-50 MG 1 EACH TABLET PO SCH (10:01)
[2017-12-01] MEDS: FUROSEMIDE 40 MG TABLET PO SCH (10:04)
[2017-12-02] MEDS: IBUPROFEN 800 MG TABLET PO SCH ×3 (05:04→21:39)
[2017-12-02 07:07] LABS: HEMATOCRIT 32.6 % (36.0-47.0); HEMOGLOBIN 11.5 g/dL (12.0-15.5); MEAN CORPUSCULAR HEMOGLOBIN 31.6 pg (27.0-33.4); MEAN CORPUSCULAR HGB CONC 35.3 g/dL (32.0-36.0); MEAN CORPUSCULAR VOLUME 90 fl (80-97); PLATELET COUNT 156 10^3/uL (150-450); RED BLOOD COUNT 3.63 10^6/uL (3.72-5.28); RED CELL DISTRIBUTION WIDTH 12.7 % (11.5-14.0); WHITE BLOOD COUNT 10.3 10^3/uL (4.0-10.5)
--- NOTE | 2017-12-02 09:17 | PDOC PROGRESS REPORT ---
Subjective-OB Progress Note for:: 12/02/17 Subjective: PP Day #1, , denies headache, hx of Drug abuse and on Subutex during the . +Hepatitis C Physical Exam (OB) Vital Signs: Temp Pulse Resp BP Pulse Ox 98.3 F 72 18 150/95 H 97 12/02/17 07:36 12/02/17 07:36 12/02/17 07:36 12/02/17 07:36 12/02/17 07:36 Intake & Output 12/01/17 12/02/17 12/03/17 06:59 06:59 06:59 Intake Total 1000 1000 Balance 1000 1000 - General General Appearance: Appears well, Alert In distress: None - PIH/Pre-Eclampsia DTR's: 1 + Clonus: Negative Headache: Absent Epigastric Pain: No Visual Changes: No - Episiotomy/Laceration Site Condition: Well Approximated - Lochia Lochia Amount: Scant < 10 ml Lochia Color: Rubra/Red - Abdomen Description: Tender, Soft, Round Hernia Present: No Fundal Description: Firm, Midline Fundal Height: u/u - u/2 - Respiratory Respiratory Status: No respiratory distress - Abdominal Inspection: Normal Distension: No distension - Genitourinary Genitourinary Note: voiding - Extremities Upper extremity: Normal inspection, Tender, Edema Lower extremities: Edema - Neurological Cognition: Normal Orientation: AAOx4 - Psychological Associated symptoms: Normal affect, Normal mood - Skin Skin Temperature: Warm Skin Moisture: Dry Objective-Diagnostic Laboratory: 12/02/17 06:24 11/30/17 10:23 12/02/17 06:24 WBC 10.3 RBC 3.63 L Hgb 11.5 L Hct 32.6 L MCV 90 MCH 31.6 MCHC 35.3 RDW 12.7 Plt Count 156 Assessment and Plan(PN) - Assessment and Plan (1) Delivery normal Is this a current diagnosis for this admission?: Yes (2) Gestational hypertension Qualifiers: Trimester: unspecified trimester Qualified Code(s): O13.9 - Gestational [ -induced] hypertension without significant proteinuria, unspecified trimester Is this a current diagnosis for this admission?: Yes (3) Opioid dependence on agonist therapy Is this a current diagnosis for this admission?: Yes - Time Spent with Patient Medications reviewed and adjusted accordingly: Yes - Disposition Anticipated Discharge: Home Within: within 24 hours
[2017-12-02] MEDS: PRENATAL VITAMIN W DHA CAPSULE PO SCH (09:37)
[2017-12-02] MEDS: FUROSEMIDE 40 MG TABLET PO SCH (09:37)
[2017-12-02] MEDS: NICOTINE 21 MG/24 HR PATCH.TD24 TD SCH (09:37)
[2017-12-02] MEDS: DOCUSATE SODIUM 100 MG CAPSULE PO SCH ×2 (09:38→18:17)
[2017-12-02] MEDS: FERROUS SULFATE 325 MG TABLET PO SCH ×2 (09:38→18:17)
[2017-12-02] MEDS: BUPRENORPHINE HCL 2 MG SUBLINGUAL TABLET SL SCH ×2 (09:38→18:17)
[2017-12-02] MEDS: NIFEDIPINE 30 MG TAB.ER.24 PO SCH (09:38)
[2017-12-02] MEDS: ACETAMINOPHEN WITH CODEINE #3 TABLET PO PRN ×3 (09:45→22:57)
[2017-12-02] MEDS: SENNOSIDES/DOCUSATE 8.6-50 MG 1 EACH TABLET PO SCH (10:46)
[2017-12-03] MEDS ORDERED: NIFEDIPINE 30 MG TAB.ER.24 PO ONE (00:06)
[2017-12-03] MEDS: ACETAMINOPHEN WITH CODEINE #3 TABLET PO PRN (03:52)
[2017-12-03] MEDS: IBUPROFEN 800 MG TABLET PO SCH (05:46)
[2017-12-03 09:10] VITALS: BP 122/78
[2017-12-03] MEDS: PRENATAL VITAMIN W DHA CAPSULE PO SCH (09:40)
[2017-12-03] MEDS: FERROUS SULFATE 325 MG TABLET PO SCH (09:40)
[2017-12-03] MEDS: BUPRENORPHINE HCL 2 MG SUBLINGUAL TABLET SL SCH (09:40)
[2017-12-03] MEDS: SENNOSIDES/DOCUSATE 8.6-50 MG 1 EACH TABLET PO SCH (09:40)
[2017-12-03] MEDS: NICOTINE 21 MG/24 HR PATCH.TD24 TD SCH (09:41)
--- NOTE | 2017-12-03 09:41 | PDOC DISCHARGE SUMMARY ---
Final Diagnosis Discharge Date: 12/03/17 - Final Diagnosis (1) Delivery normal Is this a current diagnosis for this admission?: Yes (2) Gestational hypertension Is this a current diagnosis for this admission?: Yes (3) Opioid dependence on agonist therapy Is this a current diagnosis for this admission?: Yes Discharge Data - Discharge Medication Home Medications: Buprenorphine HCl [Subutex 8 mg Sublingual Tablet] 8 mg PO BID 11/01/17 Vit No.129/Iron/Folic [ One Daily Tablet] 1 tab PO DAILY Reason(s) for Admission: Induction of Labor, Medical Complications Procedures: NST, Ultrasound Intrapartum Procedure(s): Spontaneous Vaginal Delivery - Diagnosis Test Laboratory: Temp Pulse Resp BP Pulse Ox 97.8 F 67 16 122/78 98 12/03/17 07:27 12/03/17 07:27 12/03/17 07:27 12/03/17 07:27 12/03/17 07:27 11/29/17 11/29/17 11/30/17 19:11 19:45 10:23 RBC 5.09 4.23 Hgb 15.8 H 13.0 D Hct 45.4 38.0 Urine Opiates Screen NEGATIVE 12/02/17 06:24 RBC 3.63 L Hgb 11.5 L Hct 32.6 L Urine Opiates Screen - Discharge information/Instructions Discharge Activity: Activity As Tolerated, No Lifting Over 10 Pounds, Pelvic Rest Discharge Diet: As Tolerated, Regular Disposition: HOME, SELF-CARE Follow up with: [facility] in: 1, Weeks - for a BP check
[2017-12-03] MEDS ORDERED: NIFEDIPINE 30 MG TAB.ER.24 PO SCH ×2 (10:00)
[2017-12-03] MEDS: FUROSEMIDE 40 MG TABLET PO SCH (10:03)
[2017-12-03] MEDS: DOCUSATE SODIUM 100 MG CAPSULE PO SCH (10:03)
[2017-12-07 07:30] LABS: HEPATITS B SURFACE ANTIGEN Negative (Negative)
== END 2017-12-03 13:14 | disposition home or self-care (01) | DRG 806 ==
LOC: LC 19:06 → LR 20:37 → 2S 12-01 05:20
PROVIDERS: ADMIT Obstetrics & Gynecology; ATTEND Obstetrics & Gynecology
PROC: 4A1HXCZ Monitoring of Products of Conception, Cardiac Rate, External Approach (ICD-10-PCS; 2017-11-29)
PROC: 02H633Z Insertion of Infusion Device into Right Atrium, Percutaneous Approach (ICD-10-PCS; 2017-11-29)
PROC: B244ZZZ Ultrasonography of Right Heart (ICD-10-PCS; 2017-11-29)
PROC: 3E0P7VZ Introduction of Hormone into Female Reproductive, Via Natural or Artificial Opening (ICD-10-PCS; 2017-11-30)
PROC: 3E033VJ Introduction of Other Hormone into Peripheral Vein, Percutaneous Approach (ICD-10-PCS; 2017-11-30)
PROC: 10907ZC Drainage of Amniotic Fluid, Therapeutic from Products of Conception, Via Natural or Artificial Opening (ICD-10-PCS; 2017-11-30)
PROC: 10E0XZZ Delivery of Products of Conception, External Approach (ICD-10-PCS; principal; 2017-12-01)
PROC: 0KQM0ZZ Repair Perineum Muscle, Open Approach (ICD-10-PCS; 2017-12-01)
DX: O13.4 Gestational [pregnancy-induced] hypertension without significant proteinuria, complicating childbirth (principal); F11.20 Opioid dependence, uncomplicated; O98.413 Viral hepatitis complicating pregnancy, third trimester; O99.324 Drug use complicating childbirth; I87.2 Venous insufficiency (chronic) (peripheral); O99.334 Smoking (tobacco) complicating childbirth; F17.210 Nicotine dependence, cigarettes, uncomplicated; B19.20 Unspecified viral hepatitis C without hepatic coma; O70.1 Second degree perineal laceration during delivery; Z3A.39 39 weeks gestation of pregnancy; Z37.0 Single live birth
CPT/HCPCS: 36415; 71045; 80053; 80307; 80349; 81001; 82570; 83615; 84156; 84550; 85025; 85027; 86592; 86762; 86850; 86900; 86901; 87340; 90471; 90686; 90715; 94760; C1751; G0008; G0480; J0360; J0571; J1642; J2590; J3010; J3490